=== PATIENT | female | born 1950 | race Caucasian/White ===

== ENCOUNTER 2020-11-12 08:59 | Emergency (ER) | payer OTHER, MEDICARE, MEDICAID ==
[~2020-11-12] VITALS: Ht 162.6 cm; Wt 90.9 kg
[2020-11-12] MEDS ORDERED: ICOS1CAP PO (09:13)
[2020-11-12] MEDS ORDERED: METF-960 PO (09:13)
[2020-11-12] MEDS ORDERED: RIVA20TA PO (09:13)
[2020-11-12] MEDS ORDERED: AMLO-258 PO (09:13)
[2020-11-12] MEDS ORDERED: MULT-13 PO (09:13)
[2020-11-12] MEDS ORDERED: OLAN10TA74 PO (09:13)
[2020-11-12] MEDS ORDERED: ATOR40TA28 PO (09:13)
[2020-11-12] MEDS ORDERED: OLME20TA10 PO (09:13)
[2020-11-12] MEDS ORDERED: EZET10TA57 PO (09:13)
[2020-11-12] MEDS ORDERED: DOCU-270 PO (09:13)
[2020-11-12] MEDS ORDERED: CHOL-35 PO (09:13)
[2020-11-12 10:50] LABS: BASOPHILS % (AUTO) 0.6 % (0.0-2.0); EOSINOPHILS % (AUTO) 0.5 % (1.0-6.0); HEMATOCRIT 42.3 % (36-46); LYMPHOCYTES # (AUTO) 2.3 K/uL (1.0-4.8); LYMPHOCYTES % (AUTO) 27.8 % (22.0-44.0); MEAN CORPUSCULAR HEMOGLOBIN 30.7 pg (26.0-34.0); MEAN CORPUSCULAR VOLUME 93 fL (80-100); MONOCYTES # (AUTO) 0.7 K/uL (0.1-1.0); MONOCYTES % (AUTO) 8.2 % (2.0-9.0); NEUTROPHILS # (AUTO) 5.1 K/uL (1.8-7.7); NEUTROPHILS % (AUTO) 62.9 % (40.0-70.0); PLATELET COUNT (AUTO) 305 K/uL (150-450); RED BLOOD CELL COUNT(AUTO) 4.54 MIL/uL (4.00-5.20); RED CELL DISTRIBUTION WIDTH 13.1 % (11.5-14.5)
[2020-11-12 10:59] LABS: ANION GAP 14 mmol/L (8-16); CARBON DIOXIDE 23 mmol/L (22-29); CHLORIDE 100 mmol/L (98-107); CREATININE 0.73 mg/dL (0.60-1.30); GLOMERULAR FILTR. RATE CALC > 60 mL/min (>60); GLUCOSE,RANDOM 99 mg/dL (70-110); POTASSIUM 3.9 mmol/L (3.5-5.1); SODIUM SERUM 137 mmol/L (136-145); UREA NITROGEN, BLOOD 12 mg/dL (7-18)
[2020-11-12 11:05] LABS: ALANINE AMINOTRANSFERASE 38 U/L (12-78); ALBUMIN 4.2 g/dL (3.4-5.0); ALKALINE PHOSPHATASE 143 U/L (46-116); ASPARTATE AMINOTRANSFERASE 27 U/L (15-37); BILIRUBIN,TOTAL 0.5 mg/dL (0.1-1.0); TOTAL PROTEIN, SERUM 7.9 g/dL (6.4-8.2)
[2020-11-12 12:30] LABS: COVID AG,FIA SOURCE NASOPHARYNGEAL
[2020-11-12 12:31] VITALS: BP 128/84
== END 2020-11-12 14:18 | disposition home or self-care (01) ==
LOC: EMS 08:59
DX: R19.7 Diarrhea, unspecified (principal); M62.838 Other muscle spasm; E11.9 Type 2 diabetes mellitus without complications; I10 Essential (primary) hypertension; Z20.822 Contact with and (suspected) exposure to COVID-19; Z86.73 Personal history of transient ischemic attack (TIA), and cerebral infarction without residual deficits; Z79.84 Long term (current) use of oral hypoglycemic drugs; Z88.0 Allergy status to penicillin
CPT/HCPCS: 80053; 82962; 85025; 99283

== ENCOUNTER 2020-12-28 16:35 | Emergency (ER) | payer MEDICARE, OTHER, MEDICAID ==
[~2020-12-28] VITALS: Ht 152.4 cm; Wt 84.1 kg
[~2020-12-28 16:35] MED LIST: AMLO-258 PO; ATOR40TA28 PO; CHOL-35 PO; DOCU-270 PO; EZET10TA57 PO; ICOS1CAP PO; METF-1211 PO; MULT-13 PO; OLAN10TA74 PO; OLME20TA10 PO; RIVA20TA PO
[2020-12-28 17:46] LABS: CALCIUM, TOTAL 9.6 mg/dL (8.8-10.5); CREATININE 1.04 mg/dL (0.60-1.30)
[2020-12-28 19:25] VITALS: BP 150/85
== END 2020-12-28 20:30 | disposition home or self-care (01) ==
LOC: EMS 16:35
DX: R56.9 Unspecified convulsions (principal); E11.9 Type 2 diabetes mellitus without complications; I10 Essential (primary) hypertension; Z86.73 Personal history of transient ischemic attack (TIA), and cerebral infarction without residual deficits; Z88.0 Allergy status to penicillin; Z79.84 Long term (current) use of oral hypoglycemic drugs
CPT/HCPCS: 70450; 80048; 99284

== ENCOUNTER 2023-09-24 13:17 | Inpatient (IN) | payer MEDICARE, OTHER, MEDICAID ==
[~2023-09-24] VITALS: Ht 170.2 cm; Wt 90.0 kg
[~2023-09-24 13:17] MED LIST changes: -CHOL-35 PO; +CHOL25TA4 PO; -DOCU-270 PO; +DOCU-385 PO; -MULT-13 PO; +MULT-14 PO; -OLME20TA10 PO; +OLME20TA73 PO
[2023-09-24] MEDS ORDERED: DIVA125C20 PO (13:47)
[2023-09-24] MEDS ORDERED: GABA600T10 PO (13:47)
[2023-09-24] MEDS ORDERED: AMLO10TA55 PO (13:47)
[2023-09-24] MEDS ORDERED: FLUT1AER IH (13:47)
[2023-09-24] MEDS ORDERED: FLUT1BLS23 IH (13:47)
[2023-09-24] MEDS ORDERED: AMIO200 PO (13:47)
[2023-09-24] MEDS ORDERED: OLAN5TAB30 PO (13:47)
[2023-09-24] MEDS ORDERED: PALI156D IM (13:47)
[2023-09-24] MEDS ORDERED: DIVA-112 PO (13:47)
[2023-09-24 14:41] LABS: COVID AG,FIA SOURCE NPH
[2023-09-24 15:02] LABS: SARS-COV2 (COVID) ANTIGEN,FIA Negative (Negative)
[2023-09-24 15:22] LABS: BASOPHILS % (AUTO) 0.7 % (0.0-2.0); EOSINOPHILS % (AUTO) 0.3 % (1.0-6.0); HEMATOCRIT 45.5 % (36-46); HEMOGLOBIN 14.5 g/dL (12.0-16.0); LYMPHOCYTES # (AUTO) 2.4 K/uL (1.0-4.8); LYMPHOCYTES % (AUTO) 28.6 % (22.0-44.0); MEAN CORPUSCULAR HEMOGLOBIN 30.6 pg (26.0-34.0); MEAN CORPUSCULAR HGB CONC 31.8 G/dL (31.0-37.0); MEAN CORPUSCULAR VOLUME 96 fL (80-100); MONOCYTES # (AUTO) 0.7 K/uL (0.1-1.0); MONOCYTES % (AUTO) 8.7 % (2.0-9.0); NEUTROPHILS # (AUTO) 5.2 K/uL (1.8-7.7); NEUTROPHILS % (AUTO) 61.7 % (40.0-70.0); PLATELET COUNT (AUTO) 305 K/uL (150-450); RED BLOOD CELL COUNT(AUTO) 4.72 MIL/uL (4.00-5.20); RED CELL DISTRIBUTION WIDTH 13.7 % (11.5-14.5); WHITE BLOOD COUNT (AUTO) 8.4 K/uL (4.5-11.0)
[2023-09-24 15:23] LABS: APPEARANCE,URINE CLEAR (CLEAR); BILIRUBIN,URINE NEGATIVE (NEGATIVE); COLOR,URINE COLORLESS (YELLOW); GLUCOSE, URINE (UA) NEGATIVE (NEGATIVE); KETONES,URINE NEGATIVE (NEGATIVE); LEUKOCYTE ESTERASE ,URINE NEGATIVE (NEGATIVE); NITRATE,URINE NEGATIVE (NEGATIVE); OCCULT BLOOD,URINE NEGATIVE (NEGATIVE); PROTEIN,URINE TRACE mg/dL (NEGATIVE); SPECIFIC GRAVITIY, URINE 1.005 (1.003-1.030); UROBILINOGEN,URINE <=1.0 mg/dL (<=1.0)
[2023-09-24 15:31] LABS: ANION GAP 7 mmol/L (8-16); CALCIUM, TOTAL 9.3 mg/dL (8.8-10.5); CARBON DIOXIDE 30 mmol/L (22-29); CHLORIDE 101 mmol/L (98-107); CREATININE 0.75 mg/dL (0.60-1.30); GLOMERULAR FILTR. RATE CALC > 60 mL/min (>60); GLUCOSE,RANDOM 129 mg/dL (70-110); POTASSIUM 3.9 mmol/L (3.5-5.1); SODIUM SERUM 138 mmol/L (136-145); UREA NITROGEN, BLOOD 10 mg/dL (7-18)
[2023-09-24 15:36] LABS: ALCOHOL, URINE DRUG SCREEN NEGATIVE (NEGATIVE); AMPHET/METH SCREEN,URINE NEGATIVE (NEGATIVE); BARBITURATE SCREEN, URINE NEGATIVE (NEGATIVE); BENZODIAZEPINES SCREEN,URINE NEGATIVE (NEGATIVE); CANNABINOID SCREEN,URINE NEGATIVE (NEGATIVE); COCAINE SCREEN,URINE NEGATIVE (NEGATIVE); METHADONE SCREEN, URINE NEGATIVE (NEGATIVE); OPIATE SCREEN,URINE NEGATIVE (NEGATIVE); PHENCYCLIDINE SCREEN,URINE NEGATIVE (NEGATIVE)
[2023-09-24 15:46] LABS: THYROID STIMULATING HORMONE 2.08 uIU/mL (0.36-3.74)
[2023-09-24 15:59] LABS: ALCOHOL, BLOOD (SERUM) < 3 mg/dL (0-10)
[2023-09-24 16:01] LABS: TROPONIN I-HIGH SENSITIVITY 68 ng/L (<51)
[2023-09-24] MEDS ORDERED: MORPHINE SULFATE 2 MG/ML SYRINGE IVP PRN (16:45)
[2023-09-24] MEDS ORDERED: ZOLPIDEM TARTRATE 5 MG TABLET PO PRN (16:45)
[2023-09-24] MEDS ORDERED: MAGNESIUM HYDROXIDE SUSPENSION 30 ML UDCUP PO PRN (16:45)
[2023-09-24] MEDS ORDERED: BISACODYL 10 MG RECTAL RECTAL SUPPOSITORY PR PRN (16:45)
[2023-09-24] MEDS ORDERED: ONDANSETRON HCL 4 MG/2 ML VIAL IVP PRN (16:45)
[2023-09-24] MEDS ORDERED: ACETAMINOPHEN 325 MG TABLET PO PRN (16:45)
[2023-09-24] MEDS: ASPIRIN 81 MG CHEWABLE TABLET PO ONE (18:00)
[2023-09-24 20:38] VITALS: BP 131/93; PULSE 96; RESP 18; TEMP 98.6
[2023-09-24] MEDS: DOCUSATE SODIUM 100 MG CAPSULE PO SCH (21:00)
[2023-09-24 23:11] VITALS: BP 128/92; PULSE 70; RESP 18; TEMP 98.5
[2023-09-25] MEDS: HEPARIN SODIUM,PORCINE 5,000 UNITS/ML VIAL SQ SCH
[2023-09-25 04:20] VITALS: BP 129/79; PULSE 75; RESP 20; TEMP 98.5
[2023-09-25 06:56] LABS: TROPONIN I-HIGH SENSITIVITY 60 ng/L (<51)
[2023-09-25 08:43] VITALS: BP 129/89; PULSE 97; RESP 19; TEMP 98.2
[2023-09-25] MEDS: FLUTICASONE/VILANTEROL 100-25 MCG/INH INHALER [14] IH SCH (08:48)
[2023-09-25] MEDS: PANTOPRAZOLE SODIUM 40 MG DR TABLET PO SCH (08:49)
[2023-09-25] MEDS: AmLODIPine BESYLATE 10 MG TABLET PO SCH (08:49)
[2023-09-25] MEDS: CHOLECALCIFEROL (VIT D3) 1,000 UNITS [25 MCG] TABLET PO SCH (08:49)
[2023-09-25] MEDS: AMIODARONE HCL 200 MG TABLET PO SCH (08:49)
[2023-09-25 12:01] VITALS: BP 105/62; PULSE 105; RESP 20; TEMP 98.7
[2023-09-25] MEDS: GABAPENTIN 300 MG CAPSULE PO SCH (12:10)
[2023-09-25] MEDS: HYDROCODONE/ACETAMINOPHEN 5-325 MG TABLET PO PRN (12:10)
[2023-09-25] MEDS ORDERED: DIVA-153 PO (13:43)
[2023-09-25] MEDS ORDERED: DOCU100C33 PO (13:44)
[2023-09-25] MEDS ORDERED: OLAN15TA21 PO (13:46)
[2023-09-25] MEDS ORDERED: PANT-31 PO (13:47)
[2023-09-25] MEDS ORDERED: HEPA500018 SQ (13:47)
[2023-09-25] MEDS ORDERED: ACET-784 PO (13:48)
[2023-09-25] MEDS ORDERED: MAGN-169 PO (13:49)
[2023-09-25 15:30] VITALS: BP 128/92; PULSE 95; RESP 20; TEMP 98
[2023-09-25 19:13] VITALS: BP 114/80; PULSE 90; RESP 19; TEMP 99.4
[2023-09-25] MEDS ORDERED: HALOPERIDOL LACTATE 5 MG/ML VIAL IM PRN (20:30)
[2023-09-25] MEDS: DIVALPROEX SODIUM 500 MG ER TABLET PO SCH (21:45)
[2023-09-25] MEDS: OLANZapine 5 MG RAPDIS TABLET PO SCH (21:45)
[2023-09-25 23:38] VITALS: BP 113/86; PULSE 106; RESP 19; TEMP 98.4
[2023-09-26 03:32] VITALS: BP 126/83; PULSE 94; RESP 18; TEMP 97
[2023-09-26 08:17] VITALS: BP 114/70; PULSE 92; RESP 18; TEMP 97.5
[2023-09-26 11:09] VITALS: BP 127/88; PULSE 91; RESP 18; TEMP 98
[2023-09-26] MEDS ORDERED: EPINEPHrine 1:1,000 [1 MG/ML] VIAL SQ ONE (12:00)
[2023-09-26 12:47] LABS: COVID AG,FIA SOURCE NASAL SWAB
[2023-09-26 13:20] LABS: SARS-COV2 (COVID) ANTIGEN,FIA Negative (Negative)
[2023-09-26 17:16] VITALS: BP 120/90; PULSE 94; RESP 18; TEMP 98.3
[2023-09-26] MEDS ORDERED: BISA10SU11 PR (17:32)
[2023-09-26] MEDS ORDERED: HALO5VIA16 IM (17:34)
[2023-09-26 19:31] VITALS: BP 112/77; PULSE 91; RESP 18; TEMP 98.2
[2023-09-26 22:51] LABS: TROPONIN I-HIGH SENSITIVITY 179 ng/L (<51)
[2023-09-26 23:04] VITALS: BP 114/90; PULSE 100; RESP 18; TEMP 98.2
[2023-09-27 03:39] VITALS: BP 114/66; PULSE 75; RESP 18; TEMP 98.4
[2023-09-27 07:40] VITALS: BP 123/74; PULSE 66; RESP 18; TEMP 98.3
[2023-09-27 07:55] LABS: TROPONIN I-HIGH SENSITIVITY 110 ng/L (<51)
[2023-09-27 11:12] VITALS: BP 119/79; PULSE 88; RESP 18; TEMP 98.6
[2023-09-27 15:27] VITALS: BP 139/97; PULSE 96; RESP 18; TEMP 97.6
[2023-09-27 19:26] VITALS: BP 118/67; PULSE 82; RESP 18; TEMP 97.4
[2023-09-28] MEDS ORDERED: SODIUM CHLORIDE 0.9% 1,000 ML IV ONE (00:30)
[2023-09-28] MEDS ORDERED: SODIUM BICARBONATE [ADULT] 8.4% 50 MEQ/50 ML SYRINGE IVP ONE ×2 (04:19)
[2023-09-28] MEDS ORDERED: EPINEPHrine 1:10,000 [1 MG/10 ML] SYRINGE IVP ONE (04:19)
[2023-09-28 07:46] LABS: GLUCOMETER DEV NAME(LOC) 6N.2B; GLUCOSE,POINT OF CARE 156 MG/DL (70-110)
== END 2023-09-28 04:20 | DRG 303 ==
LOC: EMS 13:17 → EDH 16:36 → 5S 20:43 → 6S 09-27 12:39 → ICU 09-28 00:05
PROVIDERS: ADMIT Internal Medicine; ATTEND Internal Medicine
DX: I25.10 Atherosclerotic heart disease of native coronary artery without angina pectoris (principal); I48.0 Paroxysmal atrial fibrillation; E78.5 Hyperlipidemia, unspecified; J44.9 Chronic obstructive pulmonary disease, unspecified; E66.01 Morbid (severe) obesity due to excess calories; K21.9 Gastro-esophageal reflux disease without esophagitis; K59.00 Constipation, unspecified; R32 Unspecified urinary incontinence; F20.9 Schizophrenia, unspecified; Z20.822 Contact with and (suspected) exposure to COVID-19; E11.9 Type 2 diabetes mellitus without complications; R79.89 Other specified abnormal findings of blood chemistry; I11.9 Hypertensive heart disease without heart failure; I46.9 Cardiac arrest, cause unspecified; S09.90XA Unspecified injury of head, initial encounter; W19.XXXA Unspecified fall, initial encounter; Z91.199 Patient's noncompliance with other medical treatment and regimen due to unspecified reason; Z79.01 Long term (current) use of anticoagulants; Z55.9 Problems related to education and literacy, unspecified; Z59.9 Problem related to housing and economic circumstances, unspecified; Z63.9 Problem related to primary support group, unspecified; Z65.3 Problems related to other legal circumstances; Z79.84 Long term (current) use of oral hypoglycemic drugs; Z86.16 Personal history of COVID-19; Z86.73 Personal history of transient ischemic attack (TIA), and cerebral infarction without residual deficits; Z87.891 Personal history of nicotine dependence; Z88.0 Allergy status to penicillin; Z79.899 Other long term (current) drug therapy; Z91.148 Patient's other noncompliance with medication regimen for other reason; Y93.89 Activity, other specified; Y92.89 Other specified places as the place of occurrence of the external cause; Y99.8 Other external cause status; Z68.31 Body mass index [BMI] 31.0-31.9, adult
CPT/HCPCS: 80048; 80164; 80307; 81003; 82962; 84443; 84484; 85025; 92950; 93005; 94002; 99285; G0378; G0480; J0171; J1644; J3490